=== PATIENT | female | born 1960 | race American Indian/Alaskan Native ===

== ENCOUNTER 2019-01-28 20:26 | Observation (INO) | payer BC, MEDICARE ==
--- NOTE | 2019-01-28 20:39 | Emergency Department Report ---
Blank Doc - Documentation Documentation: This is a 58-year-old female that presents with SOB and chest pain. Also has depression and anxiety. Denies any SI/HI. This initial assessment/diagnostic orders/clinical plan/treatment(s) is/are subject to change based on patient's health status, clinical progression and re- assessment by fellow clinical providers in the ED. Further treatment and workup at subsequent clinical providers discretion. Patient/guardians urged not to elope from the ED as their condition may be serious if not clinically assessed and managed. Initial orders include: 1- Patient sent to MAIN ED for further evaluation and treatment 2- labs 3- EKG 4- CXR
[2019-01-28 20:55] LABS: Basophils # (Auto) 0.1 K/mm3 (0.0-0.1); Basophils % (Auto) 0.8 % (0.0-1.8); Eosinophils % (Auto) 0.2 % (0.0-4.3); Hematocrit 33.6 % (30.3-42.9); Hemoglobin 10.9 gm/dl (10.1-14.3); Lymphocytes # (Auto) 1.5 K/mm3 (1.2-5.4); Lymphocytes % (Auto) 22.8 % (13.4-35.0); Mean Corpuscular HGB Conc 32 % (30-34); Mean Corpuscular Volume 80 fl (79-97); Monocytes # (Auto) 0.4 K/mm3 (0.0-0.8); Monocytes % (Auto) 5.8 % (0.0-7.3); Platelet Count 316 K/mm3 (140-440); Red Blood Count 4.22 M/mm3 (3.65-5.03); Red Cell Distribution Width 18.7 % (13.2-15.2)
[2019-01-28 21:05] LABS: INR 0.99 (0.87-1.13); Partial Thromboplastin Time 24.8 Sec. (24.2-36.6)
--- NOTE | 2019-01-28 21:14 | XRay Report ---
CHEST 2 VIEWS INDICATION / CLINICAL INFORMATION: Chest Pain. Chest palpitations and back pain. COMPARISON: None available. FINDINGS: SUPPORT DEVICES: None. HEART / MEDIASTINUM: No significant abnormality. LUNGS / PLEURA: No significant pulmonary or pleural abnormality. No pneumothorax. ADDITIONAL FINDINGS: Surgical clips in the left axilla. Mild degenerative spondylosis of the midthora cic spine. IMPRESSION: 1. No acute findings. Signer Name: Osmany Montero MD Signed: 01/28/2019 9:10 PM Workstation Name: [id number]
[2019-01-28 21:17] LABS: BUN/Creatinine Ratio 10; Blood Urea Nitrogen 9 mg/dL (7-17); Calcium 9.2 mg/dL (8.4-10.2); Hemolysis Index 0
--- NOTE | 2019-01-28 22:24 | Emergency Department Report ---
ED Chest Pain HPI - General Chief Complaint: Chest Pain Stated Complaint: CHEST PALPITATIONS, BACK PAIN, DEPRESSION ANXIETY Time Seen by Provider: 01/28/19 22:05 Source: patient Mode of arrival: Ambulatory Limitations: No Limitations - History of Present Illness Initial Comments: Patient is a 58-year-old female presents emergency room with complaints of chest pain, shortness of breath, palpitations, dyspnea on exertion. Patient states her symptoms started at 1 PM. Patient states her chest pain is an 8 out of 10. Patient describes the chest pain is nonradiating and a pressure. Patient states her chest pain is better with rest and worse with exertion. Patient states her shortness of breath is better with rest and worse with exertion. Patient states her symptoms are worsening. Patient states her blood pressures about a control lately and she is required to take multiple extra doses of clonidine to control it. Patient denies headache and blurry vision. Patient denies fever and chills. Patient is complaining of worsening of her chronic back pain. Patient states her back pain has been worsening. Patient also complaining of anxiety and depression. Patient states that her chest pain is worsened by her anxiety. MD Complaint: chest pain -: Sudden Onset: during rest Pain Location: substernal, left chest Pain Radiation: none Severity: severe Severity scale (0 -10): 8 Quality: heaviness, pressure Consistency: constant Improves With: rest Worsens With: exertion re: dyspnea. denies: nausea, vomting, diaphoresis Other Symptoms: palpitations. denies: cough, fever, syncope, rash, acid taste in mouth, leg swelling, burping Treatments Prior to Arrival: none Aspirin use within the Past 7 Days: (1) Yes - Related Data On Oral Contraceptives: No Allergies Allergy/AdvReac Type Severity Reaction Status Date / Time Penicillins Allergy Unknown Verified 12/07/14 17:40 Heart Score - HEART Score History: Moderately suspicious EKG: Non-specific Age: 45-65 Risk factors: 1-2 risk factors Troponin: < normal limit HEART Score: 4 ED Review of Systems ROS: Stated complaint: CHEST PALPITATIONS, BACK PAIN, DEPRESSION ANXIETY Other details as noted in HPI Constitutional: denies: chills, fever Eyes: denies: eye pain, eye discharge, vision change ENT: denies: ear pain, throat pain Respiratory: shortness of breath, SOB with exertion, SOB at rest. denies: cough, wheezing Cardiovascular: chest pain, palpitations, dyspnea on exertion Endocrine: no symptoms reported Gastrointestinal: denies: abdominal pain, nausea, diarrhea Genitourinary: denies: urgency, dysuria, discharge Musculoskeletal: back pain. denies: joint swelling, arthralgia Skin: denies: rash, lesions Neurological: denies: headache, weakness, paresthesias Psychiatric: anxiety, depression Hematological/Lymphatic: denies: easy bleeding, easy bruising ED Past Medical Hx - Past Medical History Previous Medical History?: Yes Hx Hypertension: Yes Hx CVA: Yes Hx Congestive Heart Failure: Yes Hx of Cancer: Yes (LEFT BREAST) Additional medical history: back pain -neurapathy - Surgical History Past Surgical History?: Yes Additional Surgical History: RIGHT LUMPECTOMY - Family History Family history: no significant - Social History Smoking Status: Never Smoker Substance Use Type: None ED Physical Exam - General Limitations: No Limitations General appearance: alert, in no apparent distress - Head Head exam: Present: atraumatic, normocephalic - Eye Eye exam: Present: normal appearance - ENT ENT exam: Present: mucous membranes moist - Neck Neck exam: Present: normal inspection - Respiratory Respiratory exam: Present: normal lung sounds bilaterally. Absent: respiratory distress - Cardiovascular Cardiovascular Exam: Present: regular rate, normal rhythm. Absent: systolic murmur, diastolic murmur, rubs, gallop - GI/Abdominal GI/Abdominal exam: Present: soft, normal bowel sounds. Absent: distended, tenderness, guarding - Rectal Rectal exam: Present: deferred - Extremities Exam Extremities exam: Present: normal inspection - Back Exam Back exam: Present: normal inspection - Neurological Exam Neurological exam: Present: alert, oriented X3 - Psychiatric Psychiatric exam: Present: normal affect, normal mood - Skin Skin exam: Present: warm, dry, intact, normal color. Absent: rash ED Course Vital Signs 01/28/19 01/28/19 20:38 22:16 Temperature 98.6 F Pulse Rate 76 84 Respiratory 18 18 Rate Blood Pressure 147/67 Blood Pressure 153/72 [Left] O2 Sat by Pulse 100 99 Oximetry LES score - Les Score Age > 65: (0) No Aspirin use within the Past 7 Days: (1) Yes 3 or more CAD Risk Factors: (0) No 2 or more Angina events in past 24 hrs: (1) Yes Known CAD with more than 50% Stenosis: (0) No Elevated Cardiac Markers: (0) No ST Deviation Greater than 0.5mm: (0) No LES Score: 2 ED Medical Decision Making - Lab Data Result diagrams: 01/28/19 20:43 01/28/19 20:43 - EKG Data -: EKG Interpreted by Me EKG shows normal: sinus rhythm, axis, intervals, QRS complexes, ST-T waves Rate: normal - EKG Data Interpretation: LVH - Radiology Data Radiology results: report reviewed, image reviewed interpreted by me: No acute findings on chest x-ray. CHEST 2 VIEWS INDICATION / CLINICAL INFORMATION: Chest Pain. Chest palpitations and back pain. COMPARISON: None available. FINDINGS: SUPPORT DEVICES: None. HEART / MEDIASTINUM: No significant abnormality. LUNGS / PLEURA: No significant pulmonary or pleural abnormality. No pneumothorax. ADDITIONAL FINDINGS: Surgical clips in the left axilla. Mild degenerative spondylosis of the midthoracic spine. IMPRESSION: 1. No acute findings. - Medical Decision Making Patient is a 58-year-old female with a past medical history of CHF, TIA and str korin and high blood pressure and chronic back pain. Patient came to the ER with complaints of chest pain, shortness of breath, dyspnea on exertion, anxiety, depression, worsening chronic back pain and difficult to control blood pressure. Patient's initial cardiac workup is negative. Patient's heart scores 4. Patient was admitted to the hospital service. Patient's chest x-ray negative. Patient's EKG shows LVH, sinus rhythm. - Differential Diagnosis acs. chf. cp. sob woodward. Critical Care Time: Yes Critical care attestation.: If time is entered above; I have spent that time in minutes in the direct care of this critically ill patient, excluding procedure time. Critical Care Time: 35 minutes ED Disposition Clinical Impression: SOB (shortness of breath), WOODWARD (dyspnea on exertion) Chest pain Qualifiers: Chest pain type: unspecified Qualified Code(s): R07.9 - Chest pain, unspecified CHF (congestive heart failure) Qualifiers: Heart failure type: unspecified Heart failure chronicity: chronic Qualified Code(s): I50.9 - Heart failure, unspecified Hypertension Qualifiers: Hypertension type: essential hypertension Qualified Code(s): I10 - Essential (primary) hypertension Disposition: OP ADMIT IP TO THIS HOSP Is pt being admited?: Yes Does the pt Need Aspirin: No Condition: Critical Time of Disposition: 22:48
[2019-01-28] MEDS ORDERED: ASPIRIN PO ONE (22:45)
[2019-01-28] MEDS ORDERED: MORPHINE IV ONE (22:45)
[2019-01-28] MEDS ORDERED: ZOFRAN ONE (22:53)
[2019-01-28] MEDS ORDERED: ZOFRAN IM ONE (22:53)
[2019-01-29] MEDS ORDERED: SODIUM CHLORIDE FLUSH SYRINGE 10 ML IV PRN (00:43)
[2019-01-29] MEDS ORDERED: NITROSTAT SL PRN (00:43)
[2019-01-29] MEDS ORDERED: MORPHINE IV PRN ×2 (00:43→04:47)
--- NOTE | 2019-01-29 00:43 | History and Physical Report ---
<LEANDRA STRICKLAND - Last Filed: 01/29/19 03:33> History of Present Illness Date of examination: 01/29/19 Date of admission: 01/28/19 23:19 Chief complaint: Chest pain History of present illness: Patient is a 58-year-old female with PMHx of CAD, CHF, CVA, HTN, left breast ca, who presents to the ER with complaints of chest pain. Pt states that the chest pain started this afternoon, it is a pressure like pain located of the left sternal border associated with nausea, SOB, palpitations. Patient states that the chest pain is intermittent and increase in intensity to 8 out of 10. Pt reports chronic back pain which started 14 years ago after chemotherapy for breast cancer and elevate BP for which she takes increase amount of PRN raheel nidine. Pt denies any radiation of the pain, denies recent illness, denies cough, denies vomiting, denies headache. Patient reports that she has similar chest pain in the past for which she saw her care coordinator (Dr Rodriguez) and an intensive family history of cardiac disease. Pt states that the chest pain was concerning which prompted her to come to the ER for evaluation. In the ER her CE was normal, her EKG showed SR, LVH, Anterior Q waves, her chest xray showed no acute findings. Pt states that she had a stress test 6 months ago, she is admitted and cardiology is consulted for evaluation. Past History Past Medical History: CAD, cancer (left breast), heart failure, hypertension, stroke Past Surgical History: Other (RT lumpectomy) Social history: no significant social history, lives with family Family history: CAD, hypertension Medications and Allergies Allergies Allergy/AdvReac Type Severity Reaction Status Date / Time Penicillins Allergy Unknown Verified 12/07/14 17:40 Home Medications Medication Instructions Recorded Confirmed Last Taken Type ALPRAZolam [Xanax TAB] 1 tab PO HS PRN 01/28/19 01/29/19 01/28/19 History Empagliflozin [Jardiance] 1 tab PO QAM 01/28/19 01/29/19 01/28/19 History Nebivolol HCl [Bystolic] 20 mg PO DAILY 01/28/19 01/29/19 01/28/19 History Oxycodone HCl [roxiCODONE] 1 tab PO PRN 01/28/19 01/29/1919 History Pantoprazole [Protonix TAB] 1 tab PO DAILY 01/28/19 01/29/19 01/28/19 History Spironolact/Hydrochlorothiazid 1 tab PO DAILY 01/28/19 01/29/19 01/28/19 History [Aldactazide 25-25 Tablet] metFORMIN [Glucophage] 1 tab PO BID 01/28/19 01/29/19 01/28/19 History Active Meds: Active Medications Enoxaparin Sodium (Lovenox) 40 mg SUB-Q QDAY@1000 [facility] Review of Systems Cardiovascular: chest pain, palpitations, lightheadedness, shortness of breath Respiratory: shortness of breath Gastrointestinal: nausea Musculoskeletal: low back pain, other (neuropatic pain) Exam - Constitutional Vitals: Temp Pulse Resp BP Pulse Ox 98.3 F 71 12 156/82 99 01/28/19 22:43 01/28/19 23:01 01/28/19 23:01 01/28/19 22:43 01/28/19 23:01 General appearance: Present: no acute distress - EENT Eyes: Present: EOM intact ENT: hearing intact - Neck Neck: Present: supple, normal ROM - Respiratory Respiratory effort: normal Respiratory: bilateral: CTA - Cardiovascular Rhythm: regular - Extremities Extremities: no ischemia, No edema Peripheral Pulses: within normal limits - Abdominal General gastrointestinal: Present: deferred Female genitourinary: Present: deferred - Rectal Rectal Exam: deferred - Integumentary Integumentary: Present: clear, warm, dry - Musculoskeletal Musculoskeletal: strength equal bilaterally - Psychiatric Psychiatric: appropriate mood/affect - Neurologic Neurologic: moves all extremities Results - Labs CBC & Chem 7: 01/29/19 01:13 01/29/19 01:13 Labs: Laboratory Last Values WBC 6.5 K/mm3 (4.5-11.0) 01/28/19 20:43 RBC 4.22 M/mm3 (3.65-5.03) 01/28/19 20:43 Hgb 10.9 gm/dl (10.1-14.3) 01/28/19 20:43 Hct 33.6 % (30.3-42.9) 01/28/19 20:43 MCV 80 fl (79-97) 01/28/19 20:43 MCH 26 pg (28-32) L 01/28/19 20:43 MCHC 32 % (30-34) 01/28/19 20:43 RDW 18.7 % (13.2-15.2) H 01/28/19 20:43 Plt Count 316 K/mm3 (140-440) 01/28/19 20:43 Lymph % (Auto) 22.8 % (13.4-35.0) 01/28/19 20:43 Tucker % (Auto) 5.8 % (0.0-7.3) 01/28/19 20:43 Eos % (Auto) 0.2 % (0.0-4.3) 01/28/19 20:43 Baso % (Auto) 0.8 % (0.0-1.8) 01/28/19 20:43 Lymph # 1.5 K/mm3 (1.2-5.4) 01/28/19 20:43 Tucker # 0.4 K/mm3 (0.0-0.8) 01/28/19 20:43 Eos # 0.0 K/mm3 (0.0-0.4) 01/28/19 20:43 Baso # 0.1 K/mm3 (0.0-0.1) 01/28/19 20:43 Seg Neutrophils % 70.4 % (40.0-70.0) H 01/28/19 20:43 Seg Neutrophils # 4.6 K/mm3 (1.8-7.7) 01/28/19 20:43 PT 12.8 Sec. (12.2-14.9) 01/28/19 20:43 INR 0.99 (0.87-1.13) 01/28/19 20:43 APTT 24.8 Sec. (24.2-36.6) 01/28/19 20:43 Sodium 142 mmol/L (137-145) 01/28/19 20:43 Potassium 4.0 mmol/L (3.6-5.0) 01/28/19 20:43 Chloride 102.5 mmol/L (98-107) 01/28/19 20:43 Carbon Dioxide 27 mmol/L (22-30) 01/28/19 20:43 17 mmol/L 01/28/19 20:43 BUN 9 mg/dL (7-17) 01/28/19 20:43 0.9 mg/dL (0.7-1.2) 01/28/19 20:43 Estimated GFR > 60 ml/min 01/28/19 20:43 10 % 01/28/19 20:43 Glucose 123 mg/dL (65-100) H 01/28/19 20:43 Calcium 9.2 mg/dL (8.4-10.2) 01/28/19 20:43 < 0.010 ng/mL (0.00-0.029) 01/28/19 23:30 Assessment and Plan Assessment and plan: 1. Chest pain r/o [place] 2. CAD 3. CHF/LVH 5. HTN 6. Stroke 7. H/o left breast ca 8. Chronic back pain 9. Neuropathy Plan Admit to [facility] Consult cardiology Admit to [facility] Continue CE q6hr x 2 more Monitor vital signs Continue home meds pain control PRN Plan of care d/w pt, voiced understading Pt's condition and plan of care d/w Dr Wen Advance Directives: Yes VTE prophylaxis?: Mechanical Plan of care discussed with patient/family: Yes <LILLIE WEN - Last Filed: 01/29/19 06:04> History of Present Illness Date of admission: 01/28/19 23:19 Medications and Allergies Active Meds: Active Medications Alprazolam (Xanax) 0.5 mg PO HS PRN PRN Reason: Sleep Aspirin (Ecotrin) 325 mg PO QDAY [facility] Enoxaparin Sodium (Lovenox) 40 mg SUB-Q QDAY@1000 [facility] Hydralazine HCl (Apresoline) 25 mg PO Q8HR [facility] Last Admin: 01/29/19 05:40 Dose: 25 mg Documented by: Hydrochlorothiazide (Hctz) 25 mg PO QDAY [facility] Insulin Human Regular (Humulin R) 0 units SUB-Q [facility]; Protocol Metoprolol Succinate (Toprol Xl) 200 mg PO QDAY [facility] Miscellaneous Medication (Empagliflozin [Jardiance]) 1 tab PO QAM [facility] Morphine Sulfate (Morphine) 2 mg IV Q4H PRN PRN Reason: Chest Pain unrelieved by NTG Nitroglycerin (Nitrostat) 0.4 mg SL Q5M PRN PRN Reason: Chest Pain Oxycodone HCl (Oxycontin) 20 mg PO Q12H [facility] Last Admin: 01/29/19 05:40 Dose: 20 mg Documented by: Oxycodone HCl (Roxicodone) 15 mg PO Q8H PRN PRN Reason: Pain, Moderate (4-6) Pantoprazole Sodium (Protonix) 40 mg PO QDAY [facility] Sodium Chloride (Sodium Chloride Flush Syringe 10 Ml) 10 ml IV PRN PRN PRN Reason: LINE FLUSH Spironolactone (Aldactone) 25 mg PO QDAY [facility] Exam - Constitutional Vitals: Temp Pulse Resp BP Pulse Ox 98.4 F 70 16 121/57 97 01/29/19 02:56 01/29/19 02:56 01/29/19 02:56 01/29/19 02:56 01/29/19 02:56 Results - Labs CBC & Chem 7: 01/29/19 01:13 01/29/19 01:13 Labs: Laboratory Last Values WBC 6.5 K/mm3 (4.5-11.0) 01/29/19 01:13 RBC 4.00 M/mm3 (3.65-5.03) 01/29/19 01:13 Hgb 10.7 gm/dl (10.1-14.3) 01/29/19 01:13 Hct 31.5 % (30.3-42.9) 01/29/19 01:13 MCV 79 fl (79-97) 01/29/19 01:13 MCH 26 pg (28-32) L 01/29/19 01:13 MCHC 34 % (30-34) 01/29/19 01:13 RDW 18.7 % (13.2-15.2) H 01/29/19 01:13 Plt Count 283 K/mm3 (140-440) 01/29/19 01:13 Lymph % (Auto) 23.0 % (13.4-35.0) 01/29/19 01:13 Tucker % (Auto) 5.7 % (0.0-7.3) 01/29/19 01:13 Eos % (Auto) 0.1 % (0.0-4.3) 01/29/19 01:13 Baso % (Auto) 0.5 % (0.0-1.8) 01/29/19 01:13 Lymph # 1.5 K/mm3 (1.2-5.4) 01/29/19 01:13 Tucker # 0.4 K/mm3 (0.0-0.8) 01/29/19 01:13 Eos # 0.0 K/mm3 (0.0-0.4) 01/29/19 01:13 Baso # 0.0 K/mm3 (0.0-0.1) 01/29/19 01:13 Seg Neutrophils % 70.7 % (40.0-70.0) H 01/29/19 01:13 Seg Neutrophils # 4.6 K/mm3 (1.8-7.7) 01/29/19 01:13 PT 12.8 Sec. (12.2-14.9) 01/28/19 20:43 INR 0.99 (0.87-1.13) 01/28/19 20:43 APTT 24.8 Sec. (24.2-36.6) 01/28/19 20:43 Sodium 142 mmol/L (137-145) 01/29/19 01:13 Potassium 3.9 mmol/L (3.6-5.0) 01/29/19 01:13 Chloride 104.2 mmol/L (98-107) 01/29/19 01:13 Carbon Dioxide 25 mmol/L (22-30) 01/29/19 01:13 17 mmol/L 01/29/19 01:13 BUN 8 mg/dL (7-17) 01/29/19 01:13 0.8 mg/dL (0.7-1.2) 01/29/19 01:13 Estimated GFR > 60 ml/min 01/29/19 01:13 10 % 01/29/19 01:13 Glucose 118 mg/dL (65-100) H 01/29/19 01:13 6.5 % (4-6) H 01/29/19 01:13 Calcium 9.0 mg/dL (8.4-10.2) 01/29/19 01:13 < 0.010 ng/mL (0.00-0.029) 01/28/19 23:30 Triglycerides 137 mg/dL (2-149) 01/29/19 01:15 Cholesterol 193 mg/dL (50-199) 01/29/19 01:15 156 mg/dL (50-130) H 01/29/19 01:15 35 mg/dL (40-59) L 01/29/19 01:15 5.51 % 01/29/19 01:15 Assessment and Plan Assessment and plan: 58-year-old woman with a history of hypertension, CHF, breast cancer, CVA comes emergency room with complaints of chest pain, she distress to 6 months ago. Agree with cardiology consult
[2019-01-29 01:33] LABS: Basophils % (Auto) 0.5 % (0.0-1.8); Eosinophils % (Auto) 0.1 % (0.0-4.3); Hemoglobin 10.7 gm/dl (10.1-14.3); Lymphocytes # (Auto) 1.5 K/mm3 (1.2-5.4); Monocytes # (Auto) 0.4 K/mm3 (0.0-0.8); Monocytes % (Auto) 5.7 % (0.0-7.3)
[2019-01-29 01:38] LABS: Hematocrit 31.5 % (30.3-42.9); Mean Corpuscular HGB Conc 34 % (30-34); Mean Corpuscular Volume 79 fl (79-97); Platelet Count 283 K/mm3 (140-440); Red Cell Distribution Width 18.7 % (13.2-15.2)
[2019-01-29 01:51] LABS: BUN/Creatinine Ratio 10; Blood Urea Nitrogen 8 mg/dL (7-17); Hemolysis Index 2
[2019-01-29 01:52] LABS: Chol/HDL Ratio 5.51 %
[2019-01-29] MEDS ORDERED: XANAX PO PRN (04:09)
[2019-01-29] MEDS ORDERED: OXYCODONE HCL PO PRN (04:49)
[2019-01-29] MEDS ORDERED: OxyCONTIN PO SCH ×2 (05:00→06:00)
[2019-01-29] MEDS ORDERED: APRESOLINE PO SCH (06:00)
--- NOTE | 2019-01-29 09:47 | Consultation ---
History of Present Illness Consult date: 01/29/19 Consult reason: chest pain History of present illness: This is a 58-year old woman with a history of breast cancer, hypertension and hyperlipidemia. She has a cardiac history of resolving dilated cardiomyopathy by routine echocardiograms that showed an improved ejection fraction 50-55%. Patient presents to the hospital with multiple complaints. She complained of chest pain, headaches, back pain and elevated blood pressure. A cardiac consul tation has been requested for chest pain evaluation. Patient has a blood pressure of 147/67 on presentation. Cycled troponin are negative thus far and her ECG is benign. A chest x-ray reports no acute findings. Past History Past Medical History: cancer (left breast), heart failure, hypertension Past Surgical History: Other (RT lumpectomy) Social history: no significant social history, lives with family Family history: CAD, hypertension Medications and Allergies Allergies Allergy/AdvReac Type Severity Reaction Status Date / Time Penicillins Allergy Unknown Verified 12/07/14 17:40 Home Medications Medication Instructions Recorded Confirmed Last Taken Type ALPRAZolam [Xanax TAB] 1 tab PO HS PRN 01/28/19 01/29/19 01/28/19 History Empagliflozin [Jardiance] 1 tab PO QAM 01/28/19 01/29/19 01/28/19 History Nebivolol HCl [Bystolic] 20 mg PO DAILY 01/28/19 01/29/19 01/28/19 History Oxycodone HCl [roxiCODONE] 1 tab PO PRN 01/28/19 01/29/19 01/28/19 History Pantoprazole [Protonix TAB] 1 tab PO DAILY 01/28/19 01/29/19 01/28/19 History Spironolact/Hydrochlorothiazid 1 tab PO DAILY 01/28/19 01/29/19 01/28/19 History [Aldactazide 25-25 Tablet] metFORMIN [Glucophage] 1 tab PO BID 01/28/19 01/29/19 01/28/19 History Active Meds: Active Medications Alprazolam (Xanax) 0.5 mg PO HS PRN PRN Reason: Sleep Aspirin (Ecotrin) 325 mg PO QDAY [facility] Enoxaparin Sodium (Lovenox) 40 mg SUB-Q QDAY@1000 [facility] Last Admin: 01/29/19 09:33 Dose: 40 mg Documented by: Hydralazine HCl (Apresoline) 25 mg PO Q8HR [facility] Last Admin: 01/29/19 05:40 Dose: 25 mg Documented by: Hydrochlorothiazide (Hctz) 25 mg PO QDAY [facility] Last Admin: 01/29/19 09:28 Dose: 25 mg Documented by: Insulin Human Regular (Humulin R) 0 units SUB-Q [facility]; Protocol Metoprolol Succinate (Toprol Xl) 200 mg PO QDAY [facility] Last Admin: 01/29/19 09:28 Dose: 200 mg Documented by: Miscellaneous Medication (Empagliflozin [Jardiance]) 1 tab PO QAM [facility] Morphine Sulfate (Morphine) 2 mg IV Q4H PRN PRN Reason: Chest Pain unrelieved by NTG Nitroglycerin (Nitrostat) 0.4 mg SL Q5M PRN PRN Reason: Chest Pain Oxycodone HCl (Oxycontin) 20 mg PO Q12H [facility] Last Admin: 01/29/19 05:40 Dose: 20 mg Documented by: Oxycodone HCl (Roxicodone) 15 mg PO Q8H PRN PRN Reason: Pain, Moderate (4-6) Pantoprazole Sodium (Protonix) 40 mg PO QDAY [facility] Last Admin: 01/29/19 09:26 Dose: 40 mg Documented by: Sodium Chloride (Sodium Chloride Flush Syringe 10 Ml) 10 ml IV PRN PRN PRN Reason: LINE FLUSH Spironolactone (Aldactone) 25 mg PO QDAY [facility] Last Admin: 01/29/19 09:28 Dose: 25 mg Documented by: Physical Examination Vital Signs Temp Pulse Resp BP Pulse Ox 98.6 F 76 18 147/67 100 01/28/19 20:38 01/28/19 20:38 01/28/19 20:38 01/28/19 20:38 01/28/19 20:38 General appearance: no acute distress HEENT: Positive: PERRL Neck: Positive: trachea midline Cardiac: Positive: Reg Rate and Rhythm Lungs: Positive: Normal Breath Sounds Neuro: Positive: Grossly Intact Extremities: Absent: edema Results 01/29/19 01:13 01/29/19 01:13 Coagulation 01/28/19 Range/Units 20:43 PT 12.8 (12.2-14.9) Sec. INR 0.99 (0.87-1.13) APTT 24.8 (24.2-36.6) Sec. Lipids 01/29/19 Range/Units 01:15 Triglycerides 137 (2-149) mg/dL Cholesterol 193 (50-199) mg/dL HDL Cholesterol 35 L (40-59) mg/dL Cholesterol/HDL Ratio 5.51 % CBC 01/28/19 01/29/19 Range/Units 20:43 01:13 WBC 6.5 6.5 (4.5-11.0) K/mm3 RBC 4.22 4.00 (3.65-5.03) M/mm3 Hgb 10.9 10.7 (10.1-14.3) gm/dl Hct 33.6 31.5 (30.3-42.9) % Plt Count 316 283 (140-440) K/mm3 Lymph # 1.5 1.5 (1.2-5.4) K/mm3 [place] # 0.4 0.4 (0.0-0.8) K/mm3 Eos # 0.0 0.0 (0.0-0.4) K/mm3 Baso # 0.1 0.0 (0.0-0.1) K/mm3 Comprehensive Metabolic Panel 01/28/19 01/29/19 Range/Units 20:43 01:13 Sodium 142 142 (137-145) mmol/L Potassium 4.0 3.9 (3.6-5.0) mmol/L Chloride 102.5 104.2 (98-107) mmol/L Carbon Dioxide 27 25 (22-30) mmol/L BUN 9 8 (7-17) mg/dL Creatinine 0.9 0.8 (0.7-1.2) mg/dL Glucose 123 H 118 H (65-100) mg/dL Calcium 9.2 9.0 (8.4-10.2) mg/dL Assessment and Plan Chest pain, atypical Hypertension Hyperlipidemia Hx of Breast Cancer We will proceed with a stress thallium test for further cardiac evaluation. Results are pending.
[2019-01-29] MEDS ORDERED: SPIRONOLACT PO SCH (10:00)
[2019-01-29] MEDS ORDERED: TOPROL XL PO SCH (10:00)
[2019-01-29] MEDS ORDERED: PROTONIX PO SCH ×2 (10:00)
[2019-01-29] MEDS ORDERED: HYDROCHLOROTHIAZID PO SCH (10:00)
[2019-01-29] MEDS ORDERED: LOVENOX SUB-Q SCH ×2 (10:00)
[2019-01-29] MEDS ORDERED: ALDACTONE PO SCH (10:00)
[2019-01-29] MEDS ORDERED: NON-FORMULARY (Nebivolol Hcl [Bystolic] 20 MG) PO SCH (10:00)
[2019-01-29] MEDS ORDERED: EMPAGLIFLOZIN PO SCH (10:00)
[2019-01-29] MEDS ORDERED: ROXICODONE PO PRN (10:00)
[2019-01-29] MEDS ORDERED: HCTZ PO SCH (10:00)
[2019-01-29] MEDS ORDERED: OXYCODONE HCL PO SCH (10:00)
[2019-01-29] MEDS ORDERED: LEXISCAN IV ONE (12:00)
[2019-01-29 12:35] VITALS: BP 124/74
[2019-01-29] MEDS: HumuLIN R SUB-Q SCH (13:45)
--- NOTE | 2019-01-29 14:04 | Discharge Summary ---
Providers - Providers Date of Admission: 01/28/19 23:19 Date of discharge: 01/29/19 Attending physician: ZACH BELLO 01/29/19 Consult to Cardiac Rehabilitation [CONS] Routine Reason For Exam: Phase I 01/29/19 00:44 Consult to Cardiology [CONS] Routine Consulting Provider: JOSHUA GONSALEZ Reason For Exam: chest pain, pt's known to you Primary care physician: LEILANI PASCUAL MD Hospitalization Condition: Good Pertinent studies: CXR Nuclear stress test Hospital course: Discharge diagnosis: 1. Chest pain ruled out [place], likely GERD 2. CAD 3. CHF/LVH 5. HTN 6. h/o Stroke 7. H/o left breast ca 8. Chronic back pain 9. Neuropathy Disposition: DC-01 TO HOME OR SELFCARE Time spent for discharge: 34 minutes Core Measure Documentation - Palliative Care Palliative Care/ Comfort Measures: Not Applicable - Core Measures Any of the following diagnoses?: history only Exam - Constitutional Vitals: Temp Pulse Resp BP Pulse Ox 98.2 F 72 20 124/74 98 01/29/19 08:19 01/29/19 08:19 01/29/19 08:19 01/29/19 11:02 01/29/19 08:19 General appearance: Present: no acute distress, obese - EENT Eyes: Present: PERRL ENT: hearing intact, clear oral mucosa - Neck Neck: Present: supple, normal ROM - Respiratory Respiratory effort: normal Respiratory: bilateral: CTA - Cardiovascular Heart Sounds: Present: S1 & S2. Absent: rub, click - Extremities Extremities: pulses symmetrical, No edema Peripheral Pulses: within normal limits - Abdominal General gastrointestinal: Present: soft, non-tender, non-distended, normal bowel sounds - Integumentary Integumentary: Present: clear, warm, dry - Musculoskeletal Musculoskeletal: gait normal, strength equal bilaterally - Psychiatric Psychiatric: appropriate mood/affect, intact judgment & insight - Neurologic Neurologic: CNII-XII intact, moves all extremities Plan Activity: advance as tolerated Weight Bearing Status: Weight Bear as Tolerated Diet: low fat, low salt Follow up with: LEILANI PASCUAL MD [Primary Care Provider] - 7 Days Prescriptions: Aspirin EC 81 mg PO QDAY #30 tablet.
--- NOTE | 2019-01-29 21:45 | Treadmill Report ---
INDICATION: Chest pain. ORDERING PHYSICIAN: Chai Vance MD FINDINGS: There is no scintigraphic evidence of myocardial ischemia. The left ventricle is normal in size and systolic function. The left ventricular ejection fraction is measured at 62%. Normal wall motion and wall thickening on gated imaging. CONCLUSION: Normal perfusion scan. JOB# [id number] AKOsmany/NTS
[2019-01-30] MEDS ORDERED: ECOTRIN PO SCH (10:00)
== END 2019-01-29 14:38 | disposition home or self-care (01) ==
LOC: ED 20:26 → 4A 23:19
PROVIDERS: ADMIT Internal Medicine; ATTEND Internal Medicine
DX: R07.89 Other chest pain (principal); I11.0 Hypertensive heart disease with heart failure; I50.9 Heart failure, unspecified; I25.10 Atherosclerotic heart disease of native coronary artery without angina pectoris; I73.9 Peripheral vascular disease, unspecified; G89.29 Other chronic pain; M54.9 Dorsalgia, unspecified; Z85.3 Personal history of malignant neoplasm of breast; Z86.73 Personal history of transient ischemic attack (TIA), and cerebral infarction without residual deficits
CPT/HCPCS: 36415; 71046; 78452; 80048; 80061; 82962; 83036; 84484; 85025; 85610; 85730; 93005; 93010; 93017; 96372; 96374; 96376; 99291; A9502; G0378; J1650; J2270; J2405

== ENCOUNTER 2019-01-30 12:03 | Emergency (ER) | payer BC, MEDICARE ==
--- NOTE | 2019-01-30 12:20 | Event Note ---
ED Screening Note Date of service: 01/30/19 Time: 12:18 ED Screening Note: This is a 58 y.o. F. that presents to the ER with chest pain. Patient was discharged yesterday. Patient reports feeling nauseous with chest pain. 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 PMH CHF, HTN, anxiety, and depression This initial assessment/diagnostic orders/clinical plan/treatment(s) is/are subject to change based on patients health status, clinical progression and re- assessment by fellow clinical providers in the ED. Further treatment and workup at subsequent clinical providers discretion. Patient/guardian urged not to elope from the ED as their condition may be serious if not clinically assessed and managed. Initial orders include: Labs and ekg
[2019-01-30 12:36] VITALS: BP 114/72
[2019-01-30 12:52] LABS: Hemoglobin 11.2 gm/dl (10.1-14.3); Mean Corpuscular HGB Conc 32 % (30-34); Mean Corpuscular Volume 80 fl (79-97); Platelet Count 330 K/mm3 (140-440); Red Blood Count 4.36 M/mm3 (3.65-5.03); Red Cell Distribution Width 19.2 % (13.2-15.2)
[2019-01-30 13:12] LABS: Calcium 9.5 mg/dL (8.4-10.2)
[2019-01-30] MEDS ORDERED: PERCOCET 5/325 PO STA (13:47)
--- NOTE | 2019-01-30 13:53 | XRay Report ---
CHEST 2 VIEWS INDICATION / CLINICAL INFORMATION: chest pain and sob. COMPARISON: 01/28/19 FINDINGS: SUPPORT DEVICES: None. HEART / MEDIASTINUM: No significant abnormality. LUNGS / PLEURA: No significant pulmonary or pleural abnormality. No pneumothorax. ADDITIONAL FINDINGS: Surgical clips in the left axilla are unchanged likely related to breast surgery . IMPRESSION: 1. No acute findings. No change. Signer Name: Osmany Montero MD Signed: 01/30/2019 1:49 PM Workstation Name: [id number]
--- NOTE | 2019-01-30 15:03 | Emergency Department Report ---
ED General Adult HPI - General Chief complaint: Chest Pain Stated complaint: CHEST PAIN/SOB/BACK PAIN Time Seen by Provider: 01/30/19 12:18 Source: patient Mode of arrival: Ambulatory Limitations: No Limitations - History of Present Illness Initial comments: 58-year-old -[place] female with past medical history of diabetes, hypertension, CHF, CVA, chronic pain. The utilization of oxycodone emergency department complaining of continued chest pain. She was recently seen on January 28 where she was admitted and had undergone a stress test perfusion scan which yielded normal results, as well as normal troponins and normal chest x-ray. She was prescribed some medication which she she was discharged with however states she had ran out of her oxycodone until she is in the process of withdrawing from those symptoms and came in to see her doctor for refill until next week. She also underwent increased amount of stress, having had recently lost her pet of 14 years. States that it is causing undue amount of stress, which she also thinks is triggering some of the chest discomfort symptoms she is having as it does not gonzalez well with her underlying anxiety. She reports no fever, chills, sweats, hemoptysis, hematemesis, hematochezia. No weight gain. Severity scale (0 -10): 5 Improves with: none Worsens with: none - Related Data Home Medications Medication Instructions Recorded Confirmed Last Taken ALPRAZolam [Xanax TAB] 1 tab PO HS PRN 01/28/19 01/29/19 01/28/19 Empagliflozin [Jardiance] 1 tab PO QAM 01/28/19 01/29/19 01/28/19 Nebivolol HCl [Bystolic] 20 mg PO DAILY 01/28/19 01/29/19 01/28/19 Oxycodone HCl [roxiCODONE] 1 tab PO PRN 01/28/19 01/29/19 01/28/19 Pantoprazole [Protonix TAB] 1 tab PO DAILY 01/28/19 01/29/19 01/28/19 Spironolact/Hydrochlorothiazid 1 tab PO DAILY 01/28/19 01/29/19 01/28/19 [Aldactazide 25-25 Tablet] metFORMIN [Glucophage] 1 tab PO BID 01/28/19 01/29/19 01/28/19 Previous Rx's Medication Instructions Recorded Last Taken Type Aspirin EC 81 mg PO QDAY #30 tablet. 01/29/19 Unknown Rx ALPRAZolam [Xanax TAB] 0.5 mg PO BID PRN #6 tab 01/30/19 Unknown Rx Allergies Allergy/AdvReac Type Severity Reaction Status Date / Time Penicillins Allergy Unknown Verified 01/30/19 12:18 ED Review of Systems ROS: Stated complaint: CHEST PAIN/SOB/BACK PAIN Other details as noted in HPI Comment: All other systems reviewed and negative ED Past Medical Hx - Past Medical History Previous Medical History?: Yes Hx Hypertension: Yes Hx CVA: Yes Hx Congestive Heart Failure: Yes Additional medical history: back pain -neurapathy - Surgical History Past Surgical History?: Yes Additional Surgical History: RIGHT LUMPECTOMY - Social History Smoking Status: Never Smoker Substance Use Type: None - Medications Home Medications: Home Medications Medication Instructions Recorded Confirmed Last Taken Type ALPRAZolam [Xanax TAB] 1 tab PO HS PRN 01/28/19 01/29/19 01/28/19 History Empagliflozin [Jardiance] 1 tab PO QAM 01/28/19 01/29/19 01/28/19 History Nebivolol HCl [Bystolic] 20 mg PO DAILY 01/28/19 01/29/19 01/28/19 History Oxycodone HCl [roxiCODONE] 1 tab PO PRN 01/28/19 01/29/19 01/28/19 History Pantoprazole [Protonix TAB] 1 tab PO DAILY 01/28/19 01/29/19 01/28/19 History Spironolact/Hydrochlorothiazid 1 tab PO DAILY 01/28/19 01/29/19 01/28/19 History [Aldactazide 25-25 Tablet] metFORMIN [Glucophage] 1 tab PO BID 01/28/19 01/29/19 01/28/19 History Aspirin EC 81 mg PO QDAY #30 tablet. 01/29/19 Unknown Rx ALPRAZolam [Xanax TAB] 0.5 mg PO BID PRN #6 tab 01/30/19 Unknown Rx ED Physical Exam - General Limitations: No Limitations General appearance: alert, in no apparent distress - Head Head exam: Present: atraumatic, normocephalic - Eye Eye exam: Present: normal appearance, PERRL, EOMI - ENT ENT exam: Present: mucous membranes moist - Neck Neck exam: Present: normal inspection - Respiratory Respiratory exam: Present: normal lung sounds bilaterally. Absent: respiratory distress - Cardiovascular Cardiovascular Exam: Present: regular rate, normal rhythm. Absent: systolic murmur, diastolic murmur, rubs, gallop - GI/Abdominal GI/Abdominal exam: Present: soft, normal bowel sounds - Extremities Exam Extremities exam: Present: normal inspection - Back Exam Back exam: Present: normal inspection - Neurological Exam Neurological exam: Present: alert, oriented X3 - Psychiatric Psychiatric exam: Present: normal affect, normal mood - Skin Skin exam: Present: warm, dry, intact, normal color. Absent: rash ED Course Vital Signs 01/30/19 12:18 Temperature 97.4 F L Pulse Rate 82 Respiratory 16 Rate Blood Pressure 114/72 [Left] O2 Sat by Pulse 99 Oximetry ED Medical Decision Making - Lab Data Result diagrams: 01/30/19 12:32 01/30/19 12:32 Critical care attestation.: If time is entered above; I have spent that time in minutes in the direct care of this critically ill patient, excluding procedure time. ED Disposition Clinical Impression: Chest pain, Stress at home, Receiving pain medication Disposition: DC-01 TO HOME OR SELFCARE Is pt being admited?: No Does the pt Need Aspirin: No Condition: Stable Instructions: Chest Pain (ED) Prescriptions: ALPRAZolam [Xanax TAB] 0.5 mg PO BID PRN #6 tab PRN Reason: Anxiety Referrals: [facility] MD [Primary Care Provider] - 3-5 Days
[2019-01-30] MEDS ORDERED: TORADOL PO STA (15:32)
== END 2019-01-30 15:53 | disposition home or self-care (01) ==
LOC: ED 12:03
DX: R07.89 Other chest pain (principal); F43.9 Reaction to severe stress, unspecified; E11.40 Type 2 diabetes mellitus with diabetic neuropathy, unspecified; I11.0 Hypertensive heart disease with heart failure; I50.9 Heart failure, unspecified; Z86.73 Personal history of transient ischemic attack (TIA), and cerebral infarction without residual deficits; Z79.84 Long term (current) use of oral hypoglycemic drugs; Z79.82 Long term (current) use of aspirin; Z79.891 Long term (current) use of opiate analgesic; Z88.0 Allergy status to penicillin
CPT/HCPCS: 36415; 71046; 80048; 84484; 85027; 93005; 93010; 99284

== ENCOUNTER 2021-12-26 19:44 | Emergency (ER) | payer BC, MEDICARE | END 2021-12-27 19:16 | disposition left against medical advice (07) | LOC: ED 19:44 | DX: R07.9 Chest pain, unspecified (principal); I50.9 Heart failure, unspecified; Z53.21 Procedure and treatment not carried out due to patient leaving prior to being seen by health care provider ==